=== PATIENT | male | born 1960 | race Caucasian/White ===

== ENCOUNTER 2022-05-30 12:32 | Emergency (ER) | payer OTHER ==
[2022-05-30] MEDS ORDERED: predniSONE 10 MG Tab PO ONE (12:33)
[2022-05-30] MEDS ORDERED: methylPREDNISolone Sodium Succinate 125 MG/2 ML SDV IVPUSH ONE (12:37)
[2022-05-30] MEDS ORDERED: diphenhydrAMINE 50 MG/ML SDV IVPUSH ONE (12:37)
[2022-05-30] MEDS ORDERED: Famotidine 20 MG/2 ML SDV IVPUSH ONE (12:37)
[2022-05-30] MEDS ORDERED: Sodium Chloride 0.9% 1,000 ML IV ONE (12:37)
[2022-05-30] MEDS ORDERED: diphenhydrAMINE 50 MG/ML SDV ONE (12:38)
[2022-05-30] MEDS ORDERED: Famotidine 20 MG/2 ML SDV ONE (12:38)
[2022-05-30] MEDS ORDERED: methylPREDNISolone Sodium Succinate 125 MG/2 ML SDV ONE (12:38)
[2022-05-30] MEDS ORDERED: EPINEPHrine 1 MG/ML SDV IM ONE ×2 (13:41→14:39)
[2022-05-30] MEDS ORDERED: predniSONE 10 MG Tab ONE (14:58)
== END 2022-05-30 15:11 | disposition home or self-care (01) ==
LOC: DL.ED 12:32
DX: T63.441A Toxic effect of venom of bees, accidental (unintentional), initial encounter (principal)
CPT/HCPCS: 96372; 96374; 96375; 99282-25; 99283; J0171; J1200; J2930; J3490; J7030; J7512

== ENCOUNTER 2025-05-06 13:53 | Emergency (ER) | payer MEDICARE, OTHER ==
[2025-05-06 14:36] LABS: BASOPHILS PERCENT AUTO 0.4 % (0.0-1.0); EOSINOPHILS PERCENT AUTO 0.7 % (1.0-3.0); LYMPHOCYTES PERCENT AUTO 17.4 % (20.5-50.1); MONOCYTES PERCENT AUTO 6.3 % (2-8); NEUTROPHILS PERCENT AUTO 75.2 % (42.2-75.2); PLATELET COUNT,PLT 171 10^3/uL (150-450); RED BLOOD CELL COUNT 4.36 10^6/uL (4.6-6.2); WHITE BLOOD CELL COUNT,WBC 9.9 10^3/uL (5.0-10.0)
[2025-05-06 14:55] LABS: CARBON DIOXIDE,CO2 30.0 mmol/L (21-32); CHLORIDE,CL 102.0 mmol/L (98-107); POTASSIUM,K 3.2 mmol/L (3.5-5.1); SODIUM,NA 140.0 mmol/L (136-145)
[2025-05-06 14:56] LABS: A/G RATIO 0.81; ALANINE AMINOTRANSFERASE,ALT 28.0 U/L (16-63); ASPARTATE AMNIOTRANSFERASE,AST 20.0 U/L (15-37); BILIRUBIN TOTAL 0.8 mg/dL (0.2-1.0); BLOOD UREA NITROGEN,BUN 12.0 mg/dL (7-18); CREATININE 0.76 mg/dL (0.70-1.30); EST CRCL DRUG DOSING (CG) 93.75 mL/min; ESTIMATED GFR 100.0 mL/min (>=60); GLUCOSE RANDOM 163.0 mg/dL (70-99); PROTEIN TOTAL,TP 6.5 g/dL (6.4-8.2)
[2025-05-06] MEDS: Potassium Chloride 10% 20 MEQ/15 ML Soln 15 ML UD Cup PO ONE (15:22)
[2025-05-06] MEDS: Take Home: Potassium Chloride 10 MEQ Tab, 10 Tab Pack PO ONE (15:22)
== END 2025-05-06 15:27 | disposition home or self-care (01) ==
LOC: DL.ED 13:53
DX: I89.0 Lymphedema, not elsewhere classified (principal); E87.6 Hypokalemia; I10 Essential (primary) hypertension; I48.91 Unspecified atrial fibrillation; Z91.030 Bee allergy status; Z91.013 Allergy to seafood; Z79.899 Other long term (current) drug therapy
CPT/HCPCS: 36415; 80053; 85025; 99283; A9270